=== PATIENT | female | born 1980 | race American Indian/Alaskan Native ===

== ENCOUNTER 2016-06-30 09:21 | Emergency (ER) | payer OTHER ==
[2016-06-30 09:38] VITALS: BP 136/96
--- NOTE | 2016-06-30 13:18 | Cat Scan Report ---
CT HEAD WITHOUT CONTRAST: HISTORY: Headaches, head injury. Serial contiguous axial images were obtained through the cranium. Intravenous contrast material was not administered. The ventricles are normal in size and appearance. There is no mass effect or midline shift. No areas of abnormally increased or decreased attenuation are seen. No mass lesion is seen. The mastoid air cells and visualized portions of the sinuses are normal. IMPRESSION: Cranial CT scan within normal limits.
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
[2016-06-30] MEDS ORDERED: MOTRIN PO ONE (14:13)
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
== END 2016-06-30 14:50 | disposition home or self-care (01) ==
LOC: ED 09:21
DX: S16.1XXA Strain of muscle, fascia and tendon at neck level, initial encounter (principal); V43.52XA Car driver injured in collision with other type car in traffic accident, initial encounter; Y93.89 Activity, other specified; Y99.8 Other external cause status; Y92.488 Other paved roadways as the place of occurrence of the external cause
CPT/HCPCS: 70450; 72125; 81025

== ENCOUNTER 2016-10-13 07:18 | Emergency (ER) | payer OTHER ==
--- NOTE | 2016-10-13 12:47 | Emergency Department Report ---
ED Eye Problem HPI - General Chief complaint: Eye Problems Stated complaint: SWOLLEN EYELID Time Seen by Provider: 10/13/16 12:19 Source: patient Mode of arrival: Ambulatory Limitations: No Limitations - History of Present Illness Initial comments: 36-year-old female complains of left eye pain, redness pain is worse in the left lower eyelid. Left lower eyelid is swollen. Patient has not taken any medication at home. Patient denies any alleviating or exacerbating factors. - Related Data Previous Rx's Medication Instructions Recorded Last Taken Type Cyclobenzaprine [Flexeril] 10 mg PO TID PRN #12 tablet 06/30/16 Unknown Rx Cephalexin [Keflex] 500 mg PO Q12HR #20 cap 10/13/16 Unknown Rx Ibuprofen [Motrin 600 MG tab] 600 mg PO Q8H PRN #30 tablet 10/13/16 Unknown Rx Polymyxin B Sulf/Trimethoprim 1 drop OP QID #1 bottle 10/13/16 Unknown Rx [Polytrim Eye Drops [id number]/0.1%] Allergies Allergy/AdvReac Type Severity Reaction Status Date / Time No Known Allergies Allergy Verified 06/30/16 09:38 ED Review of Systems ROS: Stated complaint: SWOLLEN EYELID Other details as noted in HPI Comment: All other systems reviewed and negative Eyes: eye pain, eye discharge ENT: as per HPI Respiratory: no symptoms reported Cardiovascular: as per HPI ED Past Medical Hx - Past Medical History Previous Medical History?: No - Surgical History Past Surgical History?: Yes Additional Surgical History: c section x 2 - Social History Smoking Status: Never Smoker Substance Use Type: None - Medications Home Medications: Home Medications Medication Instructions Recorded Confirmed Last Taken Type Cyclobenzaprine [Flexeril] 10 mg PO TID PRN #12 tablet 06/30/16 Unknown Rx Cephalexin [Keflex] 500 mg PO Q12HR #20 cap 10/13/16 Unknown Rx Ibuprofen [Motrin 600 MG tab] 600 mg PO Q8H PRN #30 tablet 10/13/16 Unknown Rx Polymyxin B Sulf/Trimethoprim 1 drop OP QID #1 bottle 10/13/16 Unknown Rx [Polytrim Eye Drops [id number]/0.1%] ED Physical Exam - General Limitations: No Limitations General appearance: alert, in no apparent distress - Head Head exam: Present: atraumatic - Eye Eye exam: Present: periorbital swelling, other (left lower eyelid stye) - ENT ENT exam: Present: normal exam - Neck Neck exam: Present: normal inspection - Respiratory Respiratory exam: Present: normal lung sounds bilaterally - Cardiovascular Cardiovascular Exam: Present: regular rate, normal rhythm, normal heart sounds - GI/Abdominal GI/Abdominal exam: Present: soft, normal bowel sounds ED Course Vital Signs 10/13/16 10/13/16 08:00 13:01 Temperature 98.9 F 98.6 F Pulse Rate 72 69 Respiratory 20 18 Rate Blood Pressure 109/70 Blood Pressure 118/78 [Left] O2 Sat by Pulse 100 Oximetry Critical care attestation.: If time is entered above; I have spent that time in minutes in the direct care of this critically ill patient, excluding procedure time. ED Disposition Clinical Impression: Hordeolum externum (stye) Qualifiers: Laterality: left Eyelid: lower Qualified Code(s): H00.015 - Hordeolum externum left lower eyelid Cellulitis Qualifiers: Site of cellulitis: face Qualified Code(s): L03.211 - Cellulitis of face Blepharitis of left lower eyelid Qualifiers: Blepharitis type: unspecified type Qualified Code(s): H01.005 - Unspecified blepharitis left lower eyelid Disposition: DC-01 TO HOME OR SELFCARE Is pt being admited?: No Does the pt Need Aspirin: No Condition: Stable Instructions: Stye (ED), Orbital Cellulitis (ED) Prescriptions: Cephalexin [Keflex] 500 mg PO Q12HR #20 cap Ibuprofen [Motrin 600 MG tab] 600 mg PO Q8H PRN #30 tablet PRN Reason: Pain Polymyxin B Sulf/Trimethoprim [Polytrim Eye Drops [id number]/0.1%] 1 drop OP QID #1 bottle Referrals: PRIMARY CARE, [Primary Care Provider] - 3-5 Days Forms: Work/School Release Form(ED)
[2016-10-13 13:02] VITALS: BP 118/78
== END 2016-10-13 13:00 | disposition home or self-care (01) ==
LOC: ED 07:18
DX: H00.015 Hordeolum externum left lower eyelid (principal); H01.005 Unspecified blepharitis left lower eyelid; L03.211 Cellulitis of face
CPT/HCPCS: 99282

== ENCOUNTER 2019-03-14 03:31 | Emergency (ER) | payer OTHER ==
[2019-03-14 03:39] VITALS: BP 113/82
[2019-03-14] MEDS ORDERED: IBUPROFEN 600 MG TAB PO ONE (04:43)
== END 2019-03-14 11:07 | disposition left against medical advice (07) ==
LOC: ED 03:31
DX: M54.9 Dorsalgia, unspecified (principal); Z53.21 Procedure and treatment not carried out due to patient leaving prior to being seen by health care provider